=== PATIENT | female | born 1935 | race Caucasian/White ===

== ENCOUNTER 2022-08-23 10:52 | Emergency (ER) | payer MEDICARE, OTHER ==
[2022-08-23 12:34] LABS: BASOPHILS % (AUTO) 0.2 %; EOSINOPHILS % (AUTO) 0.1 %; HCT - HEMATOCRIT 46.9 % (37.0-47.0); HGB - HEMOGLOBIN 15.1 g/dL (12.0-16.0); LYMPHOCYTES % (AUTO) 7.4 %; MEAN CORPUSCULAR HEMOGLOBIN 29.8 pg (27.0-31.0); MEAN CORPUSCULAR HGB CONC 32.2 g/dL (32.0-36.0); MEAN CORPUSCULAR VOLUME 92.5 fL (81.0-99.0); MEAN PLATELET VOLUME 9.5 fL (7.9-10.8); MONOCYTES # (AUTO) 0.5 10^3/uL (0.0-1.0); MONOCYTES % (AUTO) 4.1 %; NEUTROPHILS # (AUTO) 11.3 10^3/uL (1.5-6.6); NEUTROPHILS % (AUTO) 87.9 %; PLT - PLATELET COUNT 328 10^3/uL (130-450); RED BLOOD COUNT 5.07 10^6/uL (4.20-5.40); RED CELL DISTRIBUTION WIDTH 12.1 % (12.0-15.0); WHITE BLOOD COUNT 12.8 x10^3/uL (4.8-10.8)
[2022-08-23 12:47] LABS: ALBUMIN 4.2 g/dL (3.2-5.5); ALBUMIN/GLOBULIN RATIO 1.2 (1.0-2.2); BILIRUBIN,TOTAL 0.7 mg/dL (0.2-1.0); CALCIUM 9.9 mg/dL (8.5-10.3); CREATININE 0.9 mg/dL (0.4-1.0); POTASSIUM 4.4 mmol/L (3.5-5.0); TOTAL PROTEIN 7.6 g/dL (6.7-8.2)
[2022-08-23] MEDS ORDERED: SODIUM CHLORIDE 0.9% 1,000 ML IV STA (14:27)
--- NOTE | 2022-08-23 14:28 | ED Physician Documentation ---
History of Present Illness - Stated complaint Stated Complaint: NVD - Chief complaint Chief Complaint: Abd Pain - History obtained from History obtained from: Patient, Family - Additonal information Additional information: 87-year-old woman with history of WPW status post ablation but otherwise very healthy presents with an acute illness starting last night with epigastric pain, black vomit, and diarrhea. No sick contacts. She did not eat anything that she thinks would have caused this. No history of GI bleeding. Note made that on exam she has an irregularly irregular heart rhythm, she does not have a history that she knows of of Radha perez. She is here with her and son. Review of Systems Ten Systems: 10 systems reviewed and negative Constitutional: denies: Fever, Chills, Fatigue Cardiac: denies: Chest pain / pressure, Palpitations Respiratory: denies: Dyspnea, Cough GI: reports: Abdominal Pain, Nausea, Vomiting, Diarrhea. denies: Bloody / black stool PD PAST MEDICAL HISTORY - Present Medications Home Medications: Ambulatory Orders Medication Instructions Recorded Confirmed Nitrofurantoin [Macrobid] 1 cap PO BID #10 cap 08/23/22 Omeprazole 40 mg PO DAILY #30 cap 08/23/22 Ondansetron Odt [Zofran] 4 mg TL Q6H PRN #10 tablet 08/23/22 - Allergies Allergies/Adverse Reactions: Allergies Allergy/AdvReac Type Severity Reaction Status Date / Time No Known Drug Allergies Allergy Verified 08/23/22 12:22 PD ED PE NORMAL - Vitals Vital signs reviewed: Yes - General General: Alert and oriented X 3, No acute distress - HEENT HEENT: PERRL, EOMI - Neck Neck: Supple, no meningeal sign, No bony TTP - Cardiac Cardiac: Other (Irregularly irregular without murmur) - Respiratory Respiratory: No respiratory distress, Clear bilaterally - Abdomen Abdomen: Normal bowel sounds, Soft, Non tender - Back Back: No CVA TTP, No spinal TTP - Derm Derm: Normal color, Warm and dry - Extremities Extremities: No edema, No calf tenderness / cord - Neuro Neuro: Alert and oriented X 3, Normal speech Results - Vitals Vitals: Vital Signs - 24 hr 08/23/22 08/23/22 08/23/22 12:20 14:22 16:00 Temperature 36.5 C Heart Rate 48 L 87 86 Respiratory 18 23 22 Rate Blood Pressure 154/95 H 155/85 H 141/70 H O2 Saturation 96 97 97 Oxygen O2 Source Room air - EKG (time done) 100 Rate: Rate (enter#) Rhythm: Sinus tachycardia (Frequent PACs) Intervals: LBBB Ischemia: ST elevation c/w repol - Labs Labs: Laboratory Tests 08/23/22 08/23/22 08/23/22 12:30 12:30 15:09 WBC 12.8 H RBC 5.07 Hgb 15.1 Hct 46.9 MCV 92.5 MCH 29.8 MCHC 32.2 RDW 12.1 Plt Count 328 MPV 9.5 Neut # (Auto) 11.3 H Lymph # (Auto) 1.0 L Perkins # (Auto) 0.5 Eos # (Auto) 0.0 Baso # (Auto) 0.0 Absolute Nucleated RBC 0.00 Nucleated RBC % 0.0 Sodium 139 Potassium 4.4 Chloride 101 Carbon Dioxide 25 Anion Gap 13.0 BUN 34 H Creatinine 0.9 Estimated GFR (MDRD) 59 L Glucose 126 H Calcium 9.9 Total Bilirubin 0.7 AST 27 ALT 18 Alkaline Phosphatase 75 Total Protein 7.6 Albumin 4.2 Globulin 3.4 Albumin/Globulin Ratio 1.2 Lipase 52 H Urine Color YELLOW Urine Clarity HAZY Urine pH 6.0 Ur Specific Dawes 1.025 Urine Protein TRACE Urine Glucose (UA) NEGATIVE Urine Ketones NEGATIVE Urine Occult Blood NEGATIVE Urine Nitrite POSITIVE H Urine Bilirubin NEGATIVE Urine Urobilinogen 0.2 (NORMAL) Ur Leukocyte Esterase TRACE H Urine RBC 0-5 Urine WBC 11-25 H Ur Squamous Epith Cells RARE Squamous Urine Bacteria Many H Ur Microscopic Review INDICATED Urine Culture Comments INDICATED Gastric Fluid pH Gastric Occult Blood 08/23/22 08/23/22 15:52 16:12 WBC RBC Hgb 13.9 Hct 42.9 MCV MCH MCHC RDW Plt Count MPV Neut # (Auto) Lymph # (Auto) Perkins # (Auto) Eos # (Auto) Baso # (Auto) Absolute Nucleated RBC Nucleated RBC % Sodium Potassium Chloride Carbon Dioxide Anion Gap BUN Creatinine Estimated GFR (MDRD) Glucose Calcium Total Bilirubin AST ALT Alkaline Phosphatase Total Protein Albumin Globulin Albumin/Globulin Ratio Lipase Urine Color Urine Clarity Urine pH Ur Specific Dawes Urine Protein Urine Glucose (UA) Urine Ketones Urine Occult Blood Urine Nitrite Urine Bilirubin Urine Urobilinogen Ur Leukocyte Esterase Urine RBC Urine WBC Ur Squamous Epith Cells Urine Bacteria Ur Microscopic Review Urine Culture Comments Gastric Fluid pH 4.0 Gastric Occult Blood POSITIVE A PD MEDICAL DECISION MAKING - ED course ED course: 87-year-old woman presents with apparent gastroenteritis, she does have some blood in her vomit but good H&H initially and only a minor drop after IV fluid resuscitation here. She felt much better after some Maalox and Zofran. Passed a p.o. challenge here. Departure - Departure Disposition: Home, Self Care Clinical Impression: Gastroenteritis, Gastritis Condition: Good Record reviewed to determine appropriate education?: Yes Instructions: ED Gastritis, ED Gastroenteritis Viral Prescriptions: Nitrofurantoin [Macrobid] 1 cap PO BID #10 cap Omeprazole 40 mg PO DAILY #30 cap Ondansetron Odt [Zofran] 4 mg TL Q6H PRN #10 tablet PRN Reason: Nausea / Vomiting Comments: You were seen today for apparent gastroenteritis, with some gastritis causing some upper GI bleeding. Your initial hemoglobin was 15.1, this did drift down a bit with IV fluids but just down to 13.9. As such I do not think you have any dangerous bleeding but we are starting you on a proton pump inhibitor and received an injection of Protonix here to decrease stomach acid. You had a mild elevation in the white count which might be from a urinary infection which I am treating and you showed evidence of what we call prerenal azotemia with elevated BUN and normal creatinine. I am sending prescriptions for nausea medicine, antacid medicine, and an antibiotic to [facility] in [place]. Call your doctor to arrange a follow-up appointment, make the next available appointment. In the interim, return anytime if worse or if new symptoms develop. We will culture your urine, the results should be done in 48-72 hours. If an antibiotic change is necessary we will call you. Return if worse in the meantime, especially if you develop increasing flank pain, fevers, or cannot keep down the medication. Forms: Activity restrictions
[2022-08-23] MEDS ORDERED: MAG HYDROX/AL HYDROX/SIMETH 30 ML UDC PO STA (15:08)
[2022-08-23 15:24] LABS: BILIRUBIN,URINE NEGATIVE (NEGATIVE); GLUCOSE, URINE (UA) NEGATIVE (NEGATIVE); KETONES,URINE (UA) NEGATIVE (NEGATIVE); LEUKOCYTE ESTERASE, URINE TRACE (NEGATIVE); NITRITE,URINE POSITIVE (NEGATIVE); OCCULT BLOOD,URINE NEGATIVE (NEGATIVE); PROTEIN,URINE TRACE mg/dL (NEGATIVE); UROBILINOGEN,URINE 0.2 (NORMAL) E.U./dL (NORMAL)
[2022-08-23 15:27] LABS: CLARITY,URINE HAZY (CLEAR)
[2022-08-23 15:52] LABS: BACTERIA,URINE Many /HPF (None Seen); RBC,URINE 0-5 /HPF (0-5); SQUAMOUS EPITHELIAL CELL,UR RARE Squamous (<= Few)
[2022-08-23 16:00] LABS: GASTROCCULT POSITIVE (Negative)
[2022-08-23] MEDS ORDERED: cefTRIAXone 1 GM in SODIUM CHLORIDE 0.9% MINIBAG 100 ML IV STA (16:07)
[2022-08-23] MEDS ORDERED: PANTOPRAZOLE 40 MG VIAL IVP STA (16:07)
[2022-08-23 16:17] LABS: HCT - HEMATOCRIT 42.9 % (37.0-47.0); HGB - HEMOGLOBIN 13.9 g/dL (12.0-16.0)
[2022-08-23] MEDS ORDERED: ACETAMINOPHEN 325 MG TABLET PO STA (17:20)
[2022-08-23 17:26] VITALS: BP 136/71
== END 2022-08-23 17:25 | disposition home or self-care (01) ==
LOC: ED 10:52
DX: K29.71 Gastritis, unspecified, with bleeding (principal); K92.0 Hematemesis; K52.9 Noninfective gastroenteritis and colitis, unspecified; R79.89 Other specified abnormal findings of blood chemistry; I49.1 Atrial premature depolarization; I44.7 Left bundle-branch block, unspecified
CPT/HCPCS: 36415; 80053; 81001; 83690; 85014; 85018; 85025; 87077; 87086; 87181; 93005; 96365; 96375; 99283; A9270; 81003